=== PATIENT | male | born 1995 | race Asian ===

== ENCOUNTER 2024-07-14 19:42 | Emergency (ER) | payer SELFPAY ==
[~2024-07-14] VITALS: Ht 167.6 cm; Wt 116.0 kg
[2024-07-14 19:49] VITALS: O2SAT 99
[2024-07-14 21:50] LABS: BASOPHILS % 0.6 % (0.0-2.0); HEMATOCRIT. 51.8 % (42.0-52.0); HEMOGLOBIN. 17.4 g/dL (14.0-18.0); MEAN CORPUSCULAR HGB CONC 33.5 g/dL (31.0-37.0); MEAN CORPUSCULAR VOLUME 86.5 fL (80.0-94.0); MONOCYTES % 4.5 % (2.0-8.0); NEUTROPHILS % 82.9 % (40.0-76.0); PLATELET 294 x1000/uL (130-400); RED BLOOD CELL COUNT 5.99 mill/uL (4.7-6.1); RED CELL DISTRIBUTION WIDTH 12.8 % (11.6-14.6); WHITE BLOOD COUNT 12.4 x1000/uL (4.5-11.0)
[2024-07-14 21:51] LABS: CHLORIDE 104 mEq/L (98-107); POTASSIUM 4.3 mEq/L (3.5-5.1); SODIUM 137 mEq/L (136-145)
[2024-07-14 21:52] LABS: CARBON DIOXIDE 27 mEq/L (21-32)
[2024-07-14 21:53] LABS: CALCIUM 10.2 mg/dL (8.7-10.4)
[2024-07-14 21:58] LABS: GLUCOSE 122 mg/dL (70-105); UREA NITROGEN BLOOD 11 mg/dL (9-23)
[2024-07-14 22:00] LABS: ALANINE AMINOTRANSFERASE 61 IU/L (10-49); ALBUMIN 5.2 g/dL (3.2-4.8); ASPARTATE AMINOTRANSFERASE 30 IU/L (<34); BILIRUBIN DIRECT 0.2 mg/dL (<=3.0)
[2024-07-14 22:01] LABS: BILIRUBIN TOTAL 0.8 mg/dL (0.1-1.0); PROTEIN TOTAL 8.7 g/dL (6.0-8.3)
[2024-07-14 22:21] LABS: ETHANOL BLOOD < 10 mg/dL (<10)
[2024-07-14 22:59] VITALS: BP 144/95; PULSE 94; RESP 20; TEMP 36.72516; O2SAT 98
== END 2024-07-14 23:02 ==
LOC: ER 19:42
DX: R07.89 Other chest pain (principal)
CPT/HCPCS: 36415; 71046; 80048; 80076; 80320; 85025; 93005; 99285; G0480